=== PATIENT | female | born 1970 | race Caucasian/White ===

== ENCOUNTER → 2017-12-20 | Outpatient (REF) | payer BC | LOC: M LAB REF 15:28 | DX: E11.621 Type 2 diabetes mellitus with foot ulcer (principal) | CPT/HCPCS: 88304 ==

== ENCOUNTER → 2017-12-24 | Outpatient (REF) | payer BC ==
[2017-12-24 13:49] LABS: FERRITIN 304 NG/ML (8-252); IRON (FE) 39 UG/DL (50-170); PERCENT SATURATION 18.3 % (13.2-45.0); TOTAL IRON BINDING CAPACITY 213 UG/DL (250-450)
== END ==
LOC: M LAB REF 13:29
DX: D64.9 Anemia, unspecified (principal)

== ENCOUNTER → 2018-07-02 | Outpatient (REF) | payer BC ==
[~2018-07-02] MED LIST: ALLO300T2 PO; CORE25TA PO; DIOV160T9 PO; DOCU10CA PO; FERR324T10 PO; GLIM2TAB29 PO; LASI80TA3 PO; LEVO75TA4 PO; LIPI20TA PO; MAGN400T5 PO; ROCA0.25 PO; SENO8.6T5 PO; TRAD5TAB PO; VITA1TAB23 PO
[2018-07-02 18:38] LABS: BASO % 0.4 % (0.0-1.0); EOS # 0.3 10^3/uL (0.0-0.50); EOS % 3.4 % (0.0-3.0); HEMATOCRIT 37.1 % (36.0-47.0); HEMOGLOBIN 11.3 g/dl (12.0-15.5); LYMPH # 1.8 10^3/uL (1.5-4.5); LYMPH % 18.1 % (24.0-44.0); MEAN CORPUSCULAR HEMOGLOBIN 28.5 pg (27.0-33.0); MEAN CORPUSCULAR HGB CONC 30.5 g/dl (32.0-36.5); MEAN CORPUSCULAR VOLUME 93.5 fl (80.0-96.0); MONO # 0.7 10^3/uL (0.0-0.8); MONO % 6.8 % (0.0-5.0); NEUTROPHILS # 6.9 10^3/uL (1.8-7.7); PLATELET COUNT, AUTOMATED 287 10^3/uL (150-450); RED BLOOD COUNT 3.97 10^6/uL (4.00-5.40); WHITE BLOOD COUNT 9.7 10^3/uL (4.0-10.0)
== END ==
LOC: M LAB REF 17:12
PROVIDERS: ATTEND Internal Medicine Nephrology
DX: N18.9 Chronic kidney disease, unspecified (principal); D63.1 Anemia in chronic kidney disease

== ENCOUNTER → 2019-07-08 | Outpatient (REF) | payer MEDICAID ==
[2019-07-08 19:13] LABS: BASO % 0.4 % (0.0-1.0); EOS # 0.2 10^3/uL (0.0-0.5); EOS % 2.1 % (0.0-3.0); HEMATOCRIT 36.5 % (36.0-47.0); HEMOGLOBIN 11.2 g/dl (12.0-15.5); LYMPH # 1.9 10^3/uL (1.5-5.0); LYMPH % 17.8 % (24.0-44.0); MEAN CORPUSCULAR HEMOGLOBIN 28.3 pg (27.0-33.0); MEAN CORPUSCULAR HGB CONC 30.7 g/dl (32.0-36.5); MEAN CORPUSCULAR VOLUME 92.2 fl (80.0-96.0); MONO # 0.9 10^3/uL (0.0-0.8); MONO % 8.5 % (0.0-5.0); NEUTROPHILS # 7.6 10^3/uL (1.5-8.5); NEUTROPHILS % 70.9 % (36.0-66.0); PLATELET COUNT, AUTOMATED 265 10^3/uL (150-450); RED BLOOD COUNT 3.96 10^6/uL (4.00-5.40); WHITE BLOOD COUNT 10.7 10^3/uL (4.0-10.0)
[2019-07-08 19:18] LABS: APPEARANCE, URINE CLOUDY (CLEAR); BACTERIA, URINE AUTO 1+ (NEGATIVE); BILIRUBIN, URINE AUTO NEGATIVE (NEGATIVE); BLOOD, URINE BLOOD 1+ (NEGATIVE); COLOR, URINE YELLOW (YELLOW); GLUCOSE, URINE (UA) AUTO NEGATIVE (NEGATIVE); KETONE, URINE AUTO NEGATIVE (NEGATIVE); LEUKOCYTE ESTERASE, URINE AUTO 3+ (NEGATIVE); MUCUS, URINE SMALL (NEGATIVE); NITRITE, URINE AUTO NEGATIVE (NEGATIVE); PROTEIN, URINE AUTO NEGATIVE (NEGATIVE); RBC, URINE AUTO 20 /HPF (0-3); SPECIFIC GRAVITY URINE AUTO 1.009 (1.002-1.035); SQUAMOUS EPITHELIAL CELL UR AU 6 /HPF (0-6); UROBILINOGEN, URINE AUTO 0.2 mg/dL (0.0-2.0); WBC, URINE AUTO 91 /HPF (0-3)
[2019-07-08 19:42] LABS: ALBUMIN 2.6 GM/DL (3.2-5.2); CALCIUM LEVEL 8.6 MG/DL (8.5-10.1); CREATININE FOR GFR 1.9 MG/DL (0.55-1.30); GLOMERULAR FILTRATION RATE 29.7 (>51); MAGNESIUM LEVEL 1.9 MG/DL (1.8-2.4); POTASSIUM SERUM 4.2 MEQ/L (3.5-5.1); URIC ACID 9.1 MG/DL (2.6-6.0)
[2019-07-08 19:49] LABS: PTH INTACT 96.5 PG/ML (18.5-88.0)
== END ==
LOC: M LAB REF 16:52
PROVIDERS: ATTEND Nurse Practitioner Family
DX: N18.3 Chronic kidney disease, stage 3 (moderate) (principal); D63.1 Anemia in chronic kidney disease; N25.81 Secondary hyperparathyroidism of renal origin; E83.42 Hypomagnesemia; M10.9 Gout, unspecified

== ENCOUNTER → 2019-12-12 | Outpatient (CLI) | payer OTHER ==
[~2019-12-12] MED LIST changes: +ASCO250T20 PO; -VITA1TAB23 PO
--- NOTE | 2019-12-17 07:15 | SLEEPCENT ---
DATE: 12/12/2019 ORDERED BY: Ryan Rodriges Nocturnal polysomnography was performed for evaluation of sleep physiology in this patient with a history of excessive somnolence, nonrestorative sleep, morning headaches, and snoring. Eight hours and 13 minutes of data were reviewed. There were 455 minutes of sleep identified. Sleep latency was short at 6.5 minutes. REM latency was short at 36 minutes. Sleep architecture showed fragmentation. Overall sleep efficiency was 94.7%. The electrocardiogram showed a sinus rhythm with an average heart rate of 62 beats per minute. EEG showed normal waveforms for wake and sleep. There were 226 respiratory events identified of 10 seconds in duration or greater for an apnea-hypopnea index of 29.8. Having clearly established the presence of obstructive sleep apnea early in testing, the study was stopped shortly after midnight for the application of pressure therapy. The patient was fit with a [employer] Airfit F20 full face mask of small size. Water pressure of 4 cm were applied to the circuit and the lights were extinguished. Throughout the remaining hours of testing, pressure titration was performed. Persistence of obstructive events despite optimal mask fit and minimal air leak required a change to a bilevel device. The patient's best sleep was on a bilevel device, inspiratory pressure 25 over expiratory of 21 with which the patient slept through REM without respiratory event or oxygen desaturation. IMPRESSION: Severe obstructive sleep apnea syndrome (G47.33). Apnea-hypopnea index 29.8. RECOMMENDATION: Nightly use of pressure therapy delivered by bilevel device, inspiratory pressure 25 over expiratory pressure 21. MTDD
== END ==
LOC: M SLEEP 20:00
PROVIDERS: ATTEND Physician Assistant
DX: G47.33 Obstructive sleep apnea (adult) (pediatric) (principal)

== ENCOUNTER → 2020-02-19 | Outpatient (REF) | payer BC ==
[2020-02-19 18:14] LABS: PERCENT SATURATION 23.7 % (13.2-45.0)
== END ==
LOC: M LAB REF 17:08
PROVIDERS: ATTEND Nurse Practitioner Family
DX: D50.9 Iron deficiency anemia, unspecified (principal)

== ENCOUNTER → 2020-09-22 | Outpatient (REF) | payer BC ==
[2020-09-22 18:26] LABS: BACTERIA, URINE AUTO NEGATIVE (NEGATIVE); RBC, URINE AUTO 0 /HPF (0-3); SQUAMOUS EPITHELIAL CELL UR AU 2 /HPF (0-6); WBC, URINE AUTO 0 /HPF (0-3)
[2020-09-22 18:45] LABS: MAGNESIUM LEVEL 1.5 MG/DL (1.8-2.4); TOTAL PROTEIN 7.2 GM/DL (6.4-8.2)
[2020-09-23 14:04] LABS: ALBUMIN 3.07 GM/DL (3.29-5.55); ALBUMIN % 42.7 % (55.8-66.1); ALPHA-1-GLOBULIN % 5.1 % (2.9-4.9); ALPHA-1-GLOBULINS 0.37 GM/DL (0.17-0.41); ALPHA-2-GLOBULINS 1.07 GM/DL (0.42-0.99); ALPHA-2-GLOBULINS % 14.8 % (7.1-11.8); BETA-1-GLOBULINS 0.43 GM/DL (0.28-0.60); BETA-2-GLOBULINS % 8.3 % (3.2-6.5); GAMMA GLOBULIN % 23.1 % (11.1-18.8); GAMMA GLOBULINS 1.66 GM/DL (0.65-1.58)
== END ==
LOC: M LAB REF 17:15
PROVIDERS: ATTEND Internal Medicine Nephrology
DX: R80.9 Proteinuria, unspecified (principal); D64.9 Anemia, unspecified; N18.4 Chronic kidney disease, stage 4 (severe); E83.42 Hypomagnesemia

== ENCOUNTER → 2021-07-15 | Outpatient (REF) | payer BC ==
[2021-07-15 17:40] LABS: PERCENT SATURATION 23.5 % (13.2-45.0)
== END ==
LOC: M LAB REF 17:09
PROVIDERS: ATTEND Internal Medicine Nephrology
DX: E61.1 Iron deficiency (principal); D63.1 Anemia in chronic kidney disease; N18.9 Chronic kidney disease, unspecified

== ENCOUNTER → 2021-11-24 | Outpatient (REF) | payer BC ==
[2021-11-24 18:05] LABS: BACTERIA, URINE LARGE AMOUNT; HYALINE CAST, URINE NONE SEEN /lpf (0-1); RBC, URINE NONE SEEN /hpf (0-3); SQUAMOUS EPITHELIAL CELL URINE NONE SEEN /hpf (SMALL AMT)
== END ==
LOC: M LAB REF 16:58
PROVIDERS: ATTEND Nurse Practitioner Family
DX: R31.29 Other microscopic hematuria (principal)